=== PATIENT | male | born 1975 | race Caucasian/White ===

== ENCOUNTER 2024-03-11 09:25 | Outpatient (CLI) | payer SELFPAY ==
[2024-03-11 16:52] LABS: INR 2.33 (0.9-1.1)
== END 2024-03-11 23:59 | disposition home or self-care (01) ==
LOC: LAB.DROPOF 03-12 09:26
PROVIDERS: Visit Provider Family Medicine
DX: I48.0 Paroxysmal atrial fibrillation (principal); I35.9 Nonrheumatic aortic valve disorder, unspecified
CPT/HCPCS: 85610

== ENCOUNTER 2024-05-02 14:40 | Outpatient (CLI) | payer SELFPAY ==
[2024-05-02 16:54] LABS: INR 2.66 (0.9-1.1)
== END 2024-05-02 23:59 | disposition home or self-care (01) ==
LOC: LAB.DROPOF 05-05 12:54
PROVIDERS: PCP Family Medicine; Visit Provider Family Medicine
DX: I48.0 Paroxysmal atrial fibrillation (principal)
CPT/HCPCS: 85610

== ENCOUNTER 2024-06-25 15:04 | Outpatient (CLI) | payer SELFPAY ==
[2024-06-25 16:26] LABS: INR 3.71 (0.9-1.1); Prothrombin Time 36.5 seconds (10.1-12.5)
== END 2024-06-25 23:59 ==
LOC: LAB.DROPOF 06-26 11:29
PROVIDERS: PCP Family Medicine; Visit Provider Family Medicine
DX: I48.0 Paroxysmal atrial fibrillation (principal); I35.9 Nonrheumatic aortic valve disorder, unspecified
CPT/HCPCS: 85610

== ENCOUNTER 2024-09-09 14:50 | Outpatient (CLI) | payer SELFPAY ==
[2024-09-09 16:41] LABS: INR 2.75 (0.9-1.1); Prothrombin Time 27.4 seconds (9.2-12.1)
== END 2024-09-09 23:59 | disposition home or self-care (01) ==
LOC: LAB.DROPOF 09-10 10:31
PROVIDERS: PCP Family Medicine; Visit Provider Family Medicine
DX: I48.0 Paroxysmal atrial fibrillation (principal)
CPT/HCPCS: 85610

== ENCOUNTER 2024-11-25 15:15 | Outpatient (CLI) | payer SELFPAY ==
[2024-11-25 17:53] LABS: INR 2.48 (0.9-1.1); Prothrombin Time 25.4 seconds (10.1-12.5)
== END 2024-11-25 23:59 | disposition home or self-care (01) ==
LOC: LAB.DROPOF 11-26 09:18
PROVIDERS: PCP Family Medicine; Visit Provider Family Medicine
DX: I48.0 Paroxysmal atrial fibrillation (principal)
CPT/HCPCS: 85610

== ENCOUNTER 2025-01-15 15:05 | Outpatient (CLI) | payer SELFPAY ==
[2025-01-15 17:22] LABS: Prothrombin Time 25.9 seconds (10.1-12.5)
== END 2025-01-15 23:59 | disposition home or self-care (01) ==
LOC: LAB.DROPOF 01-16 12:42
PROVIDERS: PCP Nurse Practitioner Family; Visit Provider Nurse Practitioner Family
DX: I48.0 Paroxysmal atrial fibrillation (principal); I35.9 Nonrheumatic aortic valve disorder, unspecified
CPT/HCPCS: 85610

== ENCOUNTER 2025-03-05 14:43 | Outpatient (CLI) | payer SELFPAY ==
[2025-03-05 17:40] LABS: INR 2.53 (0.9-1.1); Prothrombin Time 26.2 seconds (10.1-12.5)
--- OUTSIDE RECORDS SUMMARY | 2025-03-06 10:44 | XMS_ITS | Clinical Summary ---
Author Organization Healthcare Address [address] [place] [address] Care Team Providers Care Heat Treat Furnace Operator Name Role Phone Pcp, No Primary Care Provider Unavailabl e Allergies No known active allergies Medications digoxin (Lanoxin) 125 MCG tablet TAKE 1 TABLET 1 TIME EACH DAY 02/11/2024 Active metoprolol succinate XL (Toprol-XL) 50 MG 24 hr tablet TAKE 1 TABLET 2 TIMES EACH DAY 01/04/2024 Active metoprolol tartrate (Lopressor) 50 MG tablet TAKE 1 TABLET 2 TIMES EACH DAY 02/11/2024 Active warfarin (Coumadin) 3 MG tablet TAKE 2 TABLETS 1 TIME EACH DAY 01/04/2024 Active warfarin (Coumadin) 6 MG tablet TAKE 1 TABLET 1 TIME EACH DAY 02/11/2024 Active rosuvastatin (Crestor) 10 MG tablet Take 1 tablet by mouth daily. 90 tablet 3 11/13/2024 Active Active Problems Problem Noted Date Diagnosed Date S/P AVR (aortic valve replacement) 08/01/2024 Social History Tobacco Use Types Packs/Day Years Used Date Smoking Tobacco: Never Smokeless Tobacco: Never Tobacco Cessation:Counseling Given: Not Answered Alcohol Use Standard Drinks/Week Comments Never 0 (1 standard drink = 0.6 oz pur e alcohol) Sex and Gender Information Value Date Recorded Sex Assigned at Not on file Legal Sex Male 9:48 AM EDT Gender Identity Not on file Sexual Orientation Not on file Last Filed Vital Signs Vital Sign Reading Time Taken Comments Blood Pressure 125/83 11/07/2024 2:59 PM EDT Pulse 90 11/07/2024 2:59 PM EDT Temperature - - Respiratory Rate - - Oxygen Saturation 97% 11/07/2024 2:59 PM EDT Inhaled Oxygen Concentration - - Weight 83.3 kg (183 lb 10.3 oz) 11/07/2024 2:59 PM EDT Height 170.2 cm (5' 7 ) 11/07/2024 2:59 PM EDT Body Mass Index 28.76 11/07/2024 2:59 PM EDT Plan of Treatment Upcoming Encounters Date Type Department Care Team ([facility] st Contact Info) Description 11/13/2025 1:30 PM EDT Appointment Medical Office Building Cardiac Diagnostic Testing Medical Office Building Echo Lab [address], [address] [place] [address] 11/13/2025 2:40 PM EDT Office Visit [facility] [address] [facility] [address], [address] [place] [address] Chema Navas MD [address] [place] [address] Health Maintenance Due Date Last Done Comments [facility]-Depression Screening 1976 [facility]-HIV Screening 1976 [facility]-Hepatitis C Screening 1976 [facility]-Infant/Child/Adol SDOH Screenings 1976 [facility]- SDOH Screenings 1994 [facility]-Adult SDOH Screenings 1994 [facility]-DTaP,Tdap,and Td Vaccine s (1 - Tdap) 12/21/1995 [facility]-Hepatitis B Vaccines (1 of 3 - 19+ 3-dose series) 12/21/1995 [facility]-Pneumococcal Vaccine: Pediatrics (0 to 5 Years) and At-Risk Patients (6 to 49 Years) (1 of 2 - PCV) 12/21/1995 CT Colonography 2021 Colonoscopy 2021 FIT-DNA 2021 FIT 2021 FOBT 2021 Sigmoidoscopy 2021 [facility]-Colorectal Cancer Screening 2021 [id number] Vaccine (1 - 20 24-25 season) 2024 [facility]-Influenza Vaccine (#1) 2025 [facility]-Zoster Vaccines (1 of 2) 2026 [facility]-Obesity Intervention Completed 11/07/2024 HPV Vaccines Aged Out No longer eligi ble based on patient's age to complete this topic [facility]-HIB Vaccines Aged Out No longer e ligible based on patient's age to complete this topic [facility]-Hepatitis A Vaccines Aged Out No longer eligible based on patient's age to complete this topic [facility]-IPV Vaccines Aged Out No longer e ligible based on patient's age to complete this topic [facility]-Rotavirus Vaccines Aged Out No lo nger eligible based on patient's age to complete this topic Care Teams Heat Treat Furnace Operator Relationship Specialty Start Date End Date Pcp, No [address] [place] [address] PCP - General Family Medicine 11/07/24
== END 2025-03-05 23:59 | disposition home or self-care (01) ==
LOC: LAB.DROPOF 03-06 10:43
PROVIDERS: PCP Family Medicine; Visit Provider Family Medicine
DX: I48.0 Paroxysmal atrial fibrillation (principal); I35.9 Nonrheumatic aortic valve disorder, unspecified
CPT/HCPCS: 85610

== ENCOUNTER 2025-05-21 10:00 | Outpatient (CLI) | payer SELFPAY ==
[2025-05-21 20:40] LABS: INR 2.72 (0.9-1.1); Prothrombin Time 28.0 seconds (10.1-12.5)
--- OUTSIDE RECORDS SUMMARY | 2025-05-22 10:35 | XMS_ITS | Clinical Summary ---
Author Organization Healthcare Address [address] [place] [address] Care Team Providers Care Outside Sales Executive Name Role Phone Pcp, No Primary Care [...] Rate - - Oxygen Saturation 97% 11/07/2024 2: 59 PM EDT Inhaled Oxygen Concentration - - Weight 83.3 kg (183 lb 10.3 oz) 11/07/2024 2:59 PM EDT Height 170.2 cm (5' 7 ) 11/07/2024 2:59 PM EDT Body Mass Index 28.76 11/07/2024 2:59 PM EDT Plan of Treatment Upcoming Encounters Date Type Department Care Team ([facility] st Contact Info) Description 11/13/2025 1:30 PM EDT Appointment Medical Office Building Cardiac Diagnostic Testing Medical Office Building Echo Lab [address], [address] [place] [address] 11/13/2025 2:40 PM EDT Office Visit [facility] [facility] [address], [address] [place] [address] Chema Navas MD [address] [place] [address] Health Maintenance Due Date Last Done Comments [facility]-Depression Screening 1975 [facility]-Infant/Child/Adol SDOH Screenings 1976 [facility]- SDOH Screenings 1994 [facility]-Adult SDOH Screenings 1994 [facility]-DTaP,Tdap,and Td Vaccine s (1 - Tdap) 12/21/1995 [facility]-Hepatitis B Vaccines (1 of 3 - 19+ 3-dose series) 12/21/1995 CT Colonography 2021 Colonoscopy 2021 FIT-DNA 2021 FIT 2021 FOBT 2021 Sigmoidoscopy 2021 [facility]-Colorectal Cancer Screening 2021 [id number] Vaccine (1 - 20 24-25 season) 2025 [facility]-Influenza Vaccine (#1) 2025 [facility]-Zoster Vaccines (1 of 2) 2026 HPV Vaccines Aged Out No longer eligi [...] on patient's age to complete this topic [facility]-Pneumococcal Vaccine: Pediatrics (0 to 5 Years) and At-Risk Patients (6 to 49 Years) Aged Out No long er eligible based on patient's age to complete this topic [facility]-Rotavirus Vaccines Aged Out No lo nger eligible based on patient's age to complete this topic Care Teams Outside Sales Executive Relationship Specialty Start Date End Date Pcp, No [address] [place] [address] PCP - General Family Medicine 11/07/24
== END 2025-05-21 23:59 ==
LOC: LAB.DROPOF 05-22 10:34
PROVIDERS: PCP Family Medicine; Visit Provider Family Medicine
DX: I48.0 Paroxysmal atrial fibrillation (principal)
CPT/HCPCS: 85610

== ENCOUNTER 2025-07-23 10:32 | Outpatient (CLI) | payer SELFPAY ==
[2025-07-23 17:51] LABS: INR 2.85 (0.9-1.1); Prothrombin Time 29.3 seconds (10.1-12.5)
--- OUTSIDE RECORDS SUMMARY | 2025-07-26 10:37 | XMS_ITS | Clinical Summary ---
Author Organization Healthcare Address [address] [place] [address] Care Team Providers Care Pelletizer Operator Name Role Phone Pcp, No Primary [...] Upcoming Encounters Date Type Department Care Team ([facility] st Contact Info) Description 11/13/2025 1:30 PM EDT Appointment Medical Office Building Cardiac Diagnostic Testing Medical Office Building Echo Lab [address], [address] [place] [address] 11/13/2025 2:40 PM EDT Office Visit [facility] [address], [address] [place] [address] Chema Navas MD [address] [place] [address] Health Maintenance Due Date Last Done Comments [facility]-Depression Screening 1976 [facility]-Infant/Child/Adol SDOH Screenings 1976 [facility]- SDOH Screenings 1994 [facility]-Adult SDOH Screenings 1994 [facility]-DTaP,Tdap,and Td Vaccine s (1 - Tdap) 12/21/1995 [facility]-Hepatitis B Vaccines (1 of 3 - 19+ 3-dose series) 12/21/1995 CT Colonography 2021 Colonoscopy 2021 FIT-DNA 2021 FIT 2021 FOBT 2021 Sigmoidoscopy 2021 [facility]-Colorectal Cancer Screening 2021 [id number] Vaccine (1 - 20 25-26 season) 2025 [facility]-Influenza Vaccine (#1) 2025 [facility]-Zoster [...] age to complete this topic Care Teams Pelletizer Operator Relationship Specialty Start Date End Date Pcp, No [address] [place] [address] PCP - General Family Medicine 11/07/24
== END 2025-07-23 23:59 | disposition home or self-care (01) ==
LOC: LAB.DROPOF 07-26 10:35
PROVIDERS: PCP Family Medicine; Visit Provider Family Medicine
DX: I35.9 Nonrheumatic aortic valve disorder, unspecified (principal); I48.0 Paroxysmal atrial fibrillation
CPT/HCPCS: 85610